=== PATIENT | male | born 1975 | race Caucasian/White ===

== ENCOUNTER 2016-02-28 09:38 | Emergency (ER) | payer OTHER ==
[2016-02-28 09:48] VITALS: BP 127/76; PULSE 93; RESP 18; TEMP 97.4
[2016-02-28] MEDS ORDERED: ORPHENADRINE 30 MG/ML 2 ML VIAL IVP STA (09:48)
--- NOTE | 2016-02-28 09:54 | ED ---
Back Pain HPI - General Chief Complaint: Back Pain/Injury Stated Complaint: Back Pain Time Seen by Provider: 02/28/16 09:39 Source: patient, EMS, RN notes reviewed Limitations: no limitations - History of Present Illness Initial Comments: 40-year-old male presents emergency Department chief complaint back pain. Patient states that he was trying to get his dog back in the house when he slipped and twisted his back. Patient states he did not fall to the ground. Patient states that he has a "back condition". Patient cannot tell me what this back condition was. Patient states she just says has taken pain meds in the past for back pain. Patient denies any bowel bladder incontinence or retention. Denies any saddle anesthesias or lower extremity paresthesias. Patient states that he did not take any medications prior to calling EMS. Patient was given 100 mcg of fentanyl prior arrival. Patient denies abdominal pain including nausea vomiting diarrhea constipation. Patient denies any dysuria or hematuria. Patient states that he had a calling EMS because he said the chair for an hour and states that he felt like he cannot get up. Patient states he has full range of motion of his lower extremities and no weakness. - Related Data Previous Rx's Medication Instructions Recorded Acetaminophen-Codeine 300-30mg 1 tab PO Q4H PRN #20 tablet 02/28/16 [Tylenol #3] Cyclobenzaprine [Flexeril] 10 mg PO TID PRN #15 tab 02/28/16 Ibuprofen [Motrin] 600 mg PO Q8HR PRN #30 tab 02/28/16 Allergies Allergy/AdvReac Type Severity Reaction Status Date / Time Penicillins Allergy Unknown Verified 02/28/16 09:50 sulfamethoxazole Allergy Rash/Hives Verified 02/28/16 09:50 [From Bactrim] trimethoprim [From Bactrim] Allergy Rash/Hives Verified 02/28/16 09:50 Review of Systems ROS Statement: Those systems with pertinent positive or pertinent negative responses have been documented in the HPI. ROS Other: All systems not noted in ROS Statement are negative. Past Medical History Past Medical History: GERD/Reflux Additional Past Medical History / Comment(s): Back pain History of Any Multi-Drug Resistant Organisms: None Reported Past Surgical History: Appendectomy Past Psychological History: No Psychological Hx Reported Smoking Status: Current every day smoker Past Alcohol Use History: Rare Past Drug Use History: None Reported General Exam Limitations: no limitations General appearance: alert, in no apparent distress Head exam: Present: atraumatic, normocephalic, normal inspection Respiratory exam: Present: normal lung sounds bilaterally. Absent: respiratory distress, wheezes, rales, rhonchi, stridor Cardiovascular Exam: Present: regular rate, normal rhythm, normal heart sounds. Absent: systolic murmur, diastolic murmur, rubs, gallop, clicks GI/Abdominal exam: Present: soft, normal bowel sounds. Absent: distended, tenderness, guarding, rebound, rigid Back exam: Present: full ROM (With mild to moderate discomfort), tenderness ( Exaggerated tenderness to the lumbar region, patient jumps off table when pressing on her spine), paraspinal tenderness, vertebral tenderness, other ( Normal straight leg raise) Neurological exam: Present: alert, oriented X3, CN II-XII intact, reflexes normal. Absent: motor sensory deficit Skin exam: Present: warm, dry, intact, normal color. Absent: rash Course Vital Signs 02/28/16 09:43 Temperature 97.4 F L Pulse Rate 93 Respiratory 18 Rate Blood Pressure 127/76 O2 Sat by Pulse 100 Oximetry Medical Decision Making - Medical Decision Making 40-year-old male present emergency by for back pain. Patient has a lumbar strain. There is no acute abnormality. Patient has no red flag symptoms. Patient be discharged with medications. Patient will follow-up with primary care physician. Disposition Clinical Impression: Strain of lumbar region Disposition: HOME SELF-CARE Condition: Stable Instructions: Acute Low Back Pain (ED) Additional Instructions: Please return to the Emergency Department if symptoms worsen or any other concerns. Prescriptions: Acetaminophen-Codeine 300-30mg [Tylenol #3] 1 tab PO Q4H PRN #20 tablet PRN Reason: pain Cyclobenzaprine [Flexeril] 10 mg PO TID PRN #15 tab PRN Reason: Muscle Spasm Ibuprofen [Motrin] 600 mg PO Q8HR PRN #30 tab PRN Reason: Pain Time of Disposition: 10:27
--- NOTE | 2016-02-28 10:08 | XR ---
EXAMINATION TYPE: XR lumbar spine 2 or 3V DATE OF EXAM ORDERED: 02/28/2016 10:02 AM HISTORY: Pain following trauma. COMPARISON: Previous study dated 04/29/2012. FINDINGS: Vertebral body height and alignment are maintained. There is no spondylolysis or spondylol isthesis. There is mild hypertrophic spondylosis at T10-11, T11-12, C3-4. The pedicles are intact. Th e facets are not adequately assessed. IMPRESSION: 1. NO ACUTE OSSEOUS LESION. 2. MILD DEGENERATIVE CHANGE.
== END 2016-02-28 10:36 | disposition home or self-care (01) ==
LOC: EC 09:38
DX: S39.012A Strain of muscle, fascia and tendon of lower back, initial encounter (principal); F17.200 Nicotine dependence, unspecified, uncomplicated; Z88.0 Allergy status to penicillin; Z88.2 Allergy status to sulfonamides; X50.1XXA Overexertion from prolonged static or awkward postures, initial encounter; Y92.009 Unspecified place in unspecified non-institutional (private) residence as the place of occurrence of the external cause
CPT/HCPCS: 99284 ×2; 96374 ×2; 72100; J2360